=== PATIENT | female | born 1965 | race Caucasian/White ===

== ENCOUNTER → 2016-09-11 | Outpatient (CLI) | payer OTHER ==
--- NOTE | 2016-09-11 14:30 | RADIOLOGY REPORT (SQ) ---
EXAM DESCRIPTION: U/S NON-OB PELVIS TV W/O DOP COMPLETED DATE/TIME: 09/11/2016 2:03 pm REASON FOR STUDY: DYSMENORRHEA (N94.6) N94.6 DYSMENORRHEA, UNSPECIFIED COMPARISON: None. TECHNIQUE: Dynamic and static grayscale images acquired of the pelvis via transvaginal approach and recorded on PACS. Additional selected color Doppler and spectral images recorded. LIMITATIONS: None. FINDINGS: UTERUS: A small hypoechoic area is identified in the uterine body just superior to the cer vix measuring 1.8 x 1.8 x 1.5 cm in diameters which may represent a small uterine fibroid. ENDOMETRIAL STRIPE: No focal or generalized thickening. No masses. CERVIX: Nabothian cysts are identified. RIGHT OVARY: Right ovary was not visualized. LEFT OVARY: Left ovarian cyst is identified measuring 3.2 x 2.9 x 3.0 cm in diameters. LEFT OVARY DOPPLER: Normal arterial vascular flow without evidence for torsion. FREE FLUID: None noted. OTHER: No other significant finding. MEASUREMENTS: UTERUS: 14.3 x 7.5 x 7.0 cm ENDOMETRIAL STRIPE: 18 mm RIGHT OVARY: Not visualized LEFT OVARY: 3.8 x 3.5 x 3.3 cm IMPRESSION: Small left ovarian cysts. Small hypoechoic area in the uterine body is noted above whic h may represent a small uterine fibroid. Other findings as noted above TECHNICAL DOCUMENTATION: JOB ID: [id number]- All Rights Reserved
== END ==
LOC: RAD 13:21
PROVIDERS: ATTEND Nurse Practitioner
DX: N94.6 Dysmenorrhea, unspecified (principal)
CPT/HCPCS: 76830

== ENCOUNTER 2017-10-19 13:54 | Emergency (ER) | payer OTHER ==
--- NOTE | 2017-10-19 15:28 | ER Document Report ---
ED Medical Screen (RME) - General Chief Complaint: Abnormal Lab Results Stated Complaint: ABNORMAL LABS Time Seen by Provider: 10/19/17 15:26 TRAVEL OUTSIDE OF THE [place] IN LAST 30 DAYS: No - HPI Notes: 10/19/17 15:28 Intermittent vaginal bleeding states heavy last night since having menopause. Patient states today was seen by her doctor had a fingerstick performed showing hemoglobin approximately around 7 told to come to the ER for blood transfusion. - Related Data Allergies/Adverse Reactions: No Known Allergies Allergy (Unverified 10/19/17 14:06) Review of Systems - Review of Systems Constitutional: Other - Anemia possible blood transfusion Physical Exam - Vital signs Vitals: Temp Pulse Resp BP Pulse Ox 99.0 F 103 H 18 186/81 H 100 10/19/17 14:08 10/19/17 14:08 10/19/17 14:08 10/19/17 14:08 10/19/17 14:08 - General General appearance: Appears well In distress: None Course - Vital Signs Vital signs: Temp Pulse Resp BP Pulse Ox 99.0 F 103 H 18 186/81 H 100 10/19/17 14:08 10/19/17 14:08 10/19/17 14:08 10/19/17 14:08 10/19/17 14:08 Doctor's Discharge - Discharge Referrals: SHANNEN BAUTISTA NP-C [Primary Care Provider] - Follow up as needed
[2017-10-19 16:26] LABS: ANION GAP 11 (5-19); BLOOD UREA NITROGEN 14 mg/dL (7-20); CALCIUM 9.1 mg/dL (8.4-10.2); CARBON DIOXIDE 31 mmol/L (22-30); CHLORIDE 102 mmol/L (98-107); GLUCOSE 138 mg/dL (75-110); HEMATOCRIT 24.9 % (36.0-47.0); MEAN CORPUSCULAR HEMOGLOBIN 17.1 pg (27.0-33.4); MEAN CORPUSCULAR HGB CONC 30.8 g/dL (32.0-36.0); PLATELET COUNT 393 10^3/uL (150-450); POTASSIUM 3.9 mmol/L (3.6-5.0); RED BLOOD COUNT 4.48 10^6/uL (3.72-5.28); RED CELL DISTRIBUTION WIDTH 19.4 % (11.5-14.0); SODIUM 143.9 mmol/L (137-145); WHITE BLOOD COUNT 13.1 10^3/uL (4.0-10.5)
[2017-10-19 16:30] LABS: ABSOLUTE MONOCYTES # (MANUAL) 0.9 10^3/uL (0.1-1.4); ABSOLUTE NEUTROPHILS# (MANUAL) 9.8 10^3/uL (1.7-8.2); BASOPHILS % (MANUAL) 2 % (0-2); EOSINOPHILS % (MANUAL) 1 % (0-6); LYMPHOCYTES % (MANUAL) 15 % (13-45); MONOCYTES % (MANUAL) 7 % (3-13); SEGMENTED NEUTROPHILS % (MAN) 75 % (42-78); TOTAL CELLS COUNTED 100
[2017-10-19 16:32] LABS: ANISOCYTOSIS 2+; HYPOCHROMASIA 2+; MEAN CORPUSCULAR VOLUME 56 fl (80-97); OVALOCYTES SLIGHT; PLATELET COMMENT ADEQUATE; POIKILOCYTOSIS SLIGHT; TOXIC GRANULATION SLIGHT
[2017-10-19 16:50] LABS: HEMOGLOBIN 7.7 g/dL (12.0-15.5)
[2017-10-19] MEDS ORDERED: NORMAL SALINE 250 ML IV PRN (17:17)
--- NOTE | 2017-10-19 18:37 | ER Document Report ---
ED General - General Chief Complaint: Abnormal Lab Results Stated Complaint: ABNORMAL LABS Time Seen by Provider: 10/19/17 15:26 Notes: Patient says that she was referred here to get blood transfusions. She has a history of anemia and in the past has been treated with iron, but currently only takes a multivitamin with iron in the pill. She has some very heavy bleeding last night that lasted for about 3 hours and contacted her primary care physician today who checked a blood count and found her hemoglobin was very low, in the 7s. Patient was referred here for transfusion. Patient says that she has had irregular menses for a long time. She has had erratic heavy bleeding at times. She is never had to get a transfusion before. Denies any vomiting of blood or passing blood per rectum. Denies history of hemorrhoids. Denies any abdominal pains. No history of ulcers. Denies any fever. Patient has had her tubes tied. History of hypertension. TRAVEL OUTSIDE OF THE [place] IN LAST 30 DAYS: No - Related Data Allergies/Adverse Reactions: No Known Allergies Allergy (Unverified 10/19/17 14:06) Past Medical History - Social History Smoking Status: Never Smoker Chew tobacco use (# tins/day): No Frequency of alcohol use: None Drug Abuse: None Family History: Reviewed & Not Pertinent Patient has suicidal ideation: No Patient has homicidal ideation: No - Past Medical History Cardiac Medical History: Reports: Hx Hypertension Past Surgical History: Reports: Hx Tubal Ligation Review of Systems - Review of Systems Notes: REVIEW OF SYSTEMS: CONSTITUTIONAL : Denies fever. EENT: Denies eye, ear, nose or mouth or throat pain or other symptoms. CARDIOVASCULAR: Denies chest pain. RESPIRATORY: Denies cough, chest congestion, or shortness of breath. GASTROINTESTINAL: Denies abdominal pain or nausea, vomiting, or diarrhea. GENITOURINARY: Denies difficulty or painful urinating, urinary frequency, blood in urine. Heavy vaginal bleeding last night. Almost clear today. See HPI. MUSCULOSKELETAL: Denies back or neck pain. Denies joint pain or swelling. SKIN: Denies rash or skin lesions. NEUROLOGICAL: Denies LOC or altered mental status. Denies headache. Denies sensory loss or motor deficits. ALL OTHER SYSTEMS REVIEWED AND NEGATIVE. Physical Exam - Vital signs Vitals: Temp Pulse Resp BP Pulse Ox 99.0 F 103 H 18 186/81 H 100 10/19/17 14:08 10/19/17 14:08 10/19/17 14:08 10/19/17 14:08 10/19/17 14:08 Interpretation: Hypertensive - Mild - Notes Notes: PHYSICAL EXAMINATION: GENERAL: Well-appearing, in no acute distress. Looks well and healthy. Vital signs are normal except for slightly elevated blood pressure which she says she and her doctor are going to work on. HEAD: Atraumatic, normocephalic. EYES: Pupils equal round and reactive to light, extraocular movements intact. ENT: oropharynx clear without exudates. Moist mucous membranes. NECK: Normal range of motion, supple. LUNGS: Breath sounds clear and equal bilaterally. HEART: Regular rate and rhythm without murmurs. ABDOMEN: Soft, nontender. No guarding or rebound. No masses. BACK: No tenderness throughout entire back. EXTREMITIES: Normal range of motion without pain. NEUROLOGICAL: Normal speech, normal gait. Normal sensory, motor, and reflex exams. Awake, alert, and oriented x3. Cranial nerves normal. PSYCH: Normal mood, normal affect. SKIN: Warm, dry, no rashes. Course - Re-evaluation Re-evalutation: 10/19/17 18:37 Patient will receive 2 units of packed cells and then discharged home to follow- up with her primary care provider. 10/19/17 20:51 I did not do a test on the patient because she is 52 years of age and because she has had a tubal ligation. However, on second thought, I decided to get a test just to confirm that she is not . - Vital Signs Vital signs: Temp Pulse Resp BP Pulse Ox 98.6 F 103 H 14 154/70 H 99 10/19/17 20:13 10/19/17 14:08 10/19/17 20:15 10/19/17 20:15 10/19/17 20:15 - Laboratory Result Diagrams: 10/19/17 16:00 10/19/17 16:00 Laboratory results interpreted by me: 10/19/17 10/19/17 10/19/17 16:00 16:00 16:00 WBC 13.1 H Hgb 7.7 L Hct 24.9 L MCV 56 L MCH 17.1 L MCHC 30.8 L RDW 19.4 H Abs Neuts (Manual) 9.8 H Abs Basophils (Manual) 0.3 H Carbon Dioxide 31 H Glucose 138 H Crossmatch See Detail Discharge - Discharge Clinical Impression: Anemia, Vaginal bleeding Condition: Stable Disposition: HOME, SELF-CARE Additional Instructions: Anemia You have been found to have a significant anemia (a lower than normal amount of red blood cells). Anemia can be due to iron deficiency, vitamin deficiency, abnormal bleeding, or internal diseases. Usually, further tests are necessary to find the exact cause of the anemia. The most common cause of anemia is iron deficiency, often brought on by blood loss. This can be treated with iron supplements. If this appears to be the most likely cause, iron tablets may be prescribed even before all tests are complete. Contact the doctor at once if you note black or tarry-looking stools, bloody vomiting, shortness of breath, chest pain, or faintness. VAGINAL BLEEDING: You are having an episode of abnormal bleeding. Causes of abnormal vaginal bleeding can include miscarriage or tubal , tumors such as cancer or benign fibroids, medication effects, or hormone imbalance. Testing can eliminate unsuspected , tumors, or infection as a cause. "Dysfunctional uterine bleeding" is due to hormone imbalance, and is especially common at times when the normal cycle is disturbed -- whether by recent , use of control pills or hormones, or impending menopause. If the bleeding is innocent, most commonly a short course of hormones is given to restore the uterus to normal. Sometimes, the normal menstrual cycle corrects itself naturally. Sometimes , brief hormone therapy, or even a D&C is required. Your physician will advise you. Treatment for anemia may be required if bleeding is severe. You should rest and avoid intercourse until the bleeding is controlled. Call the doctor or return for re-examination if you feel faint, have increasing pain, or have a major increase in the amount of bleeding. From your ultrasound done last year, it suggested the possibility that she might have a small benign tumor called FIBROIDS: Fibroids are benign growths or tumors in the uterus. They can cause enlargement of the uterus, irregular bleeding, severe bleeding with periods, and abdominal pain. Anemia may result if periods are heavy. Fibroids tend to grow until menopause, then slowly shrink. If fibroids cause severe symptoms, they can be treated surgically. Call or return if vaginal bleeding or pain becomes severe. It appears that you have been adequately worked up in the past and had appropriate follow-up and do not need any further investigation at this time. I only recommend that you follow-up with your primary care provider to follow your vaginal bleeding until it stops or to get any further studies that seem to be indicated. You are being transfused 2 units of blood. You should be able to resume normal activities tomorrow. See your primary care physician to prescribe you iron pills, if indicated in the future. FOLLOW-UP CARE: If you have been referred to a physician for follow-up care, call the physician s office for an appointment as you were instructed or within the next two days. If you experience worsening or a significant change in your symptoms, notify the physician immediately or return to the Emergency Department at any time for re-evaluation. Referrals: SHANNEN BAUTISTA NP-C [NURSE PRACTITIONER] - Follow up as needed
[2017-10-20 02:20] VITALS: BP 150/60
[2017-10-20 09:34] LABS: PATH REVIEW PATHOLOGIST REVIEWED
== END 2017-10-20 02:01 | disposition home or self-care (01) ==
LOC: ER 13:54
DX: D64.9 Anemia, unspecified (principal); N92.5 Other specified irregular menstruation; I10 Essential (primary) hypertension
CPT/HCPCS: 99283; 86900; 86901; 36415; 36430; 86850; 84703; 85025; 80048; 86920; P9016

== ENCOUNTER → 2017-10-29 | Outpatient (CLI) | payer OTHER ==
--- NOTE | 2017-10-29 13:14 | WOMENS IMAGING REPORT ---
EXAM DESCRIPTION: TRANSVAGINAL ULTRASOUND COMPLETED DATE/TIME: 10/29/2017 12:08 pm REASON FOR STUDY: UTERINE LEIOMYOMA, UNSPECIFIED LOCATION D25.9 D25.9 LEIOMYOMA OF UTERUS, UNSPECIF IED COMPARISON: PELVIC ULTRASOUND 09/11/2016 TECHNIQUE: Dynamic and static grayscale images acquired of the pelvis via transvaginal approach and recorded on PACS. Additional selected color Doppler and spectral images recorded. LIMITATIONS: None. FINDINGS: UTERUS: Uterus measures 13 x 7 x 8 cm in size. Along the lower uterine segment-cervix perla ction within the endometrial/upper endocervical canal, a hypoechoic solid polypoid mass with internal color flow is present measuring 5.6 x 3 cm in size. It is difficult to discern whether this is an e ndometrial polyp or mass protruding into the cervix, or whether this is a primary cervical mucosal ma ss extending up into the lower uterine segment. This report was called to CELIO Reagan 1300 hours, 10/29/2017. ENDOMETRIAL STRIPE: Fundal endometrial stripe measures 16 mm in thickness. CERVIX: As above. Small nabothian cysts are present. RIGHT OVARY AND DOPPLER: Normal size, 4 x 2.8 x 2.7 cm in size with a 2 cm simple cyst. No worrisome masses. Normal arterial vascular flow without evidence for torsion. LEFT OVARY AND DOPPLER: Normal size, 3.6 x 2.1 x 3.3 cm in size. No worrisome masses. Normal arterial vascular flow without evidence for torsion. FREE FLUID: None noted. OTHER: No other significant finding. IMPRESSION: 5.6 x 3 cm solid mass with internal color flow in the endocervical/endometrial canal at the lower uterine segment-cervix junction. This is worrisome for an endometrial polypoid mass or end ocervical mucosal mass or polyp. Malignancy could not be excluded. Findings called to the patient's primary provider. TECHNICAL DOCUMENTATION: JOB ID: [id number] [employer]- All Rights Reserved Reading location - IP/workstation name: [email or web address]
== END ==
LOC: WI 11:34
PROVIDERS: ATTEND Nurse Practitioner Family
DX: D25.9 Leiomyoma of uterus, unspecified (principal)
CPT/HCPCS: 76830

== ENCOUNTER 2017-12-30 19:00 | Emergency (ER) | payer OTHER ==
--- NOTE | 2017-12-30 19:57 | ER Document Report ---
ED Medical Screen (RME) - General Chief Complaint: Abnormal Lab Results Stated Complaint: ABNORMAL LAB VALUES Time Seen by Provider: 12/30/17 19:50 Mode of Arrival: Ambulatory Information source: Patient Notes: 52-year-old female presents emergency department for anemia. Patient states that she had vaginal bleeding all last week secondary to a fibroid. Patient states the bleeding has stopped. She has followed up with her physician on Wednesday and had labs drawn. She was called today with an abnormal hemoglobin of 7 and told to go to the ED for evaluation. I have greeted and performed a rapid initial assessment of this patient. A comprehensive ED assessment and evaluation of the patient, analysis of test results and completion of the medical decision making process will be conducted by additional ED providers. PHYSICAL EXAMINATION: GENERAL: Well-appearing, well-nourished and in no acute distress. HEAD: Atraumatic, normocephalic. EYES: Pupils equal round extraocular movements intact, conjunctiva are normal. ENT: Nares patent NECK: Normal range of motion LUNGS: No respiratory distress Musculoskeletal: Normal range of motion NEUROLOGICAL: Normal speech, normal gait. PSYCH: Normal mood, normal affect. SKIN: Warm, Dry, normal turgor, no rashes or lesions noted. TRAVEL OUTSIDE OF THE [place] IN LAST 30 DAYS: No - Related Data Allergies/Adverse Reactions: No Known Allergies Allergy (Verified 12/30/17 19:01) Past Medical History - Past Medical History Cardiac Medical History: Reports: Hx Hypertension Denies: Hx Coronary Artery Disease, Hx Heart Attack Pulmonary Medical History: Denies: Hx Asthma, Hx Bronchitis, Hx COPD, Hx Pneumonia Neurological Medical History: Denies: Hx Cerebrovascular Accident, Hx Seizures Renal/ Medical History: Denies: Hx Peritoneal Dialysis Musculoskeltal Medical History: Denies Hx Arthritis Past Surgical History: Reports: Hx Tubal Ligation - Immunizations Hx Diphtheria, Pertussis, Tetanus Vaccination: Yes History of Influenza Vaccine for 11/2016 - 04/2017 Season: Yes Influenza Administration Date for 11/2016 - 04/2017 Season: 11/29/17 Physical Exam - Vital signs Vitals: Temp Pulse Resp BP Pulse Ox 98.8 F 92 18 177/84 H 100 12/30/17 19:18 12/30/17 19:18 12/30/17 19:18 12/30/17 19:18 12/30/17 19:18 Course - Vital Signs Vital signs: Temp Pulse Resp BP Pulse Ox 98.8 F 92 18 177/84 H 100 12/30/17 19:18 12/30/17 19:18 12/30/17 19:18 12/30/17 19:18 12/30/17 19:18 Doctor's Discharge - Discharge Referrals: CAROLYN MACKAY FNP-C [Primary Care Provider] - Follow up as needed
[2017-12-30 20:39] LABS: ABSOLUTE BASOPHILS # (AUTO) 0.1 10^3/uL (0.0-0.2); ABSOLUTE EOSINOPHILS # (AUTO) 0.6 10^3/uL (0.0-0.6); ABSOLUTE LYMPHOCYTES (AUTO) 2.1 10^3/uL (0.5-4.7); ABSOLUTE MONOCYTES (AUTO) 0.5 10^3/uL (0.1-1.4); ABSOLUTE NEUT (AUTO) 5.2 10^3/uL (1.7-8.2); BASOPHILS % (AUTO) 1.4 % (0-2); EOSINOPHILS % (AUTO) 6.8 % (0-6); HEMATOCRIT 26.6 % (36.0-47.0); HEMOGLOBIN 8.4 g/dL (12.0-15.5); LYMPHOCYTES % (AUTO) 24.6 % (13-45); MEAN CORPUSCULAR HEMOGLOBIN 23.4 pg (27.0-33.4); MEAN CORPUSCULAR HGB CONC 31.4 g/dL (32.0-36.0); MEAN CORPUSCULAR VOLUME 75 fl (80-97); MONOCYTES % (AUTO) 5.9 % (3-13); PLATELET COUNT 401 10^3/uL (150-450); RED BLOOD COUNT 3.57 10^6/uL (3.72-5.28); RED CELL DISTRIBUTION WIDTH 22.5 % (11.5-14.0); SEGMENTED NEUTROPHILS % (AUTO) 61.3 % (42-78); TOTAL CELLS COUNTED % (AUTO) 100 %; WHITE BLOOD COUNT 8.5 10^3/uL (4.0-10.5)
[2017-12-30 20:56] LABS: ANISOCYTOSIS 3+
[2017-12-30 20:59] LABS: OVALOCYTES SLIGHT; POIKILOCYTOSIS SLIGHT; TEAR DROP CELLS SLIGHT
[2017-12-30 21:00] LABS: HYPOCHROMASIA SLIGHT; PLATELET COMMENT ADEQUATE
[2017-12-30 21:01] LABS: POLYCHROMASIA SLIGHT
--- NOTE | 2017-12-30 22:57 | ER Document Report ---
ED General - General Mode of Arrival: Ambulatory Information source: Patient TRAVEL OUTSIDE OF THE [place] IN LAST 30 DAYS: No <YAEL SANTANA - Last Filed: 12/31/17 00:34> <HERLINDA ARGUETA - Last Filed: 01/03/18 10:51> - General Chief Complaint: Abnormal Lab Results Stated Complaint: ABNORMAL LAB VALUES Time Seen by Provider: 12/30/17 19:50 Notes: Patient is a 52-year-old female with history of anemia presents to the emergency department complaining of abnormal lab results. Patient reports having vaginal bleeding last week due to a fibroid and presented to her primary care physician a couple of days ago where labs were drawn. Patient says that she was contacted by her PCP today and was informed that her hemoglobin was 7 and instructed to come to the emergency department.. Patient states that she is currently asymptomatic and has actually been feeling better recently than she has in a long time. Patient states that she is currently taking iron supplements. Patient states that she really has had to be admitted for her anemia and received blood transfusion but does not currently feel similar to those episodes. (YAEL SANTANA) - Related Data Allergies/Adverse Reactions: No Known Allergies Allergy (Verified 12/30/17 19:01) Past Medical History - General Information source: Patient - Social History Smoking Status: Never Smoker Family History: Reviewed & Not Pertinent Patient has suicidal ideation: No Patient has homicidal ideation: No - Past Medical History Cardiac Medical History: Reports: Hx Hypertension Renal/ Medical History: Denies: Hx Peritoneal Dialysis Past Surgical History: Reports: Hx Tubal Ligation - Immunizations Hx Diphtheria, Pertussis, Tetanus Vaccination: Yes <YAEL SANTANA - Last Filed: 12/31/17 00:34> Review of Systems - Review of Systems Constitutional: No symptoms reported EENT: No symptoms reported Cardiovascular: No symptoms reported Respiratory: No symptoms reported Gastrointestinal: No symptoms reported Genitourinary: No symptoms reported Female Genitourinary: No symptoms reported Musculoskeletal: No symptoms reported Skin: No symptoms reported Hematologic/Lymphatic: No symptoms reported, See HPI, Anemia Neurological/Psychological: No symptoms reported -: Yes All other systems reviewed and negative <YAEL SANTANA - Last Filed: 12/31/17 00:34> Physical Exam <YAEL SANTANA - Last Filed: 12/31/17 00:34> <HERLINDA ARGUETA - Last Filed: 01/03/18 10:51> - Vital signs Vitals: Temp Pulse Resp BP Pulse Ox 98.8 F 92 18 177/84 H 100 12/30/17 19:18 12/30/17 19:18 12/30/17 19:18 12/30/17 19:18 12/30/17 19:18 - Notes Notes: GENERAL: Alert, interacts well. No acute distress. HEAD: Normocephalic, atraumatic. EYES: Pupils equal, round, and reactive to light. Extraocular movements intact. ENT: Oral mucosa moist, tongue midline. NECK: Full range of motion. Supple. Trachea midline. LUNGS: Clear to auscultation bilaterally, no wheezes, rales, or rhonchi. No respiratory distress. HEART: Regular rate and rhythm. No murmurs, gallops, or rubs. ABDOMEN: Soft, non-tender. Non-distended. Bowel sounds present in all 4 quadrants. EXTREMITIES: Moves all 4 extremities spontaneously. NEUROLOGICAL: Alert and oriented x3. Normal speech. PSYCH: Normal affect, normal mood. SKIN: Warm, dry, normal turgor. No rashes or lesions noted. (YAEL SANTANA) Course - Laboratory Result Diagrams: 12/30/17 20:28 <YAEL SNATANA - Last Filed: 12/31/17 00:34> - Laboratory Result Diagrams: 12/30/17 20:28 <HERLINDA ARGUETA - Last Filed: 01/03/18 10:51> - Re-evaluation Re-evalutation: 12/30/17 22:58 Patient's hemoglobin 8.4 completely asymptomatic not tachycardic no dizziness no chest pain or shortness of breath. Patient states she is taking iron supplementation of note. Advised patient blood transfusion is not warranted at this time is considered a liquid organ transfusion and is not necessary with the value she has an showing no symptoms. I did discuss she is to talk to her family doctor about this and if she insists on blood transfusion this can be done on an out-patient basis. (HERLINDA ARGUETA) - Vital Signs Vital signs: Temp Pulse Resp BP Pulse Ox 97.6 F 78 18 156/82 H 97 12/30/17 23:24 12/30/17 23:24 12/30/17 23:24 12/30/17 23:24 12/30/17 23:24 - Laboratory Laboratory results interpreted by me: 12/30/17 20:28 RBC 3.57 L Hgb 8.4 L Hct 26.6 L MCV 75 L MCH 23.4 L MCHC 31.4 L RDW 22.5 H Eosinophils % 6.8 H Discharge <YAEL SANTANA - Last Filed: 12/31/17 00:34> <HERLINDA ARGUETA - Last Filed: 01/03/18 10:51> - Discharge Clinical Impression: Anemia Qualifiers: Anemia type: unspecified type Qualified Code(s): D64.9 - Anemia, unspecified Condition: Good Disposition: HOME, SELF-CARE Instructions: Anemia ([facility]) Referrals: CAROLYN MACKAY FNP-C [Primary Care Provider] - Follow up as needed Scribe Attestation: 01/03/18 10:51 I personally performed the services described in the documentation, reviewed and edited the documentation which was dictated to the scribe in my presence, and it accurately records my words and actions. (HERLINDA ARGUETA) Scribe Documentation - Scribe Written by Edisibe:: Rosa Mcgarry, 12/30/2017 23:11 acting as scribe for :: Bunny <YAEL SANTANA - Last Filed: 12/31/17 00:34>
[2017-12-30 23:25] VITALS: BP 156/82
== END 2017-12-30 23:28 | disposition home or self-care (01) ==
LOC: ER 19:00
DX: D64.9 Anemia, unspecified (principal); I10 Essential (primary) hypertension; Z98.51 Tubal ligation status
CPT/HCPCS: 36415; 85025; 99283

== ENCOUNTER 2018-01-07 05:30 | Day surgery (SDC) | payer OTHER ==
[2017-12-30 10:32] LABS: HEMATOCRIT 26.2 % (36.0-47.0); HEMOGLOBIN 8.6 g/dL (12.0-15.5); MEAN CORPUSCULAR HEMOGLOBIN 23.8 pg (27.0-33.4); MEAN CORPUSCULAR HGB CONC 32.7 g/dL (32.0-36.0); MEAN CORPUSCULAR VOLUME 73 fl (80-97); PLATELET COUNT 382 10^3/uL (150-450); RED CELL DISTRIBUTION WIDTH 22.1 % (11.5-14.0)
[2017-12-30 10:34] LABS: APPEARANCE,URINE SLIGHTLY-CLOUDY; BILIRUBIN,URINE NEGATIVE (NEGATIVE); COLOR,URINE YELLOW; GLUCOSE, URINE NEGATIVE (NEGATIVE); KETONES,URINE NEGATIVE (NEGATIVE); LEUKOCYTE ESTERASE,URINE NEGATIVE (NEGATIVE); NITRITE,URINE NEGATIVE (NEGATIVE); PROTEIN,URINE NEGATIVE (NEGATIVE); URINE SPECIFIC GRAVITY 1.014; UROBILINOGEN,URINE NEGATIVE mg/dL (<2.0)
[~2018-01-07 05:30] MED LIST: LACTATED RINGERS 1000 ML IV PRN; LIDOCAINE 0.5% INJ-PF (5 MG/ML) 50 ML SDV SUBCUT PRN
[2018-01-07] MEDS ORDERED: FENTANYL CITRATE INJ/PF 100 MCG/2 ML AMPUL ONE (06:55)
[2018-01-07] MEDS ORDERED: LIDOCAINE 2% INJ-PF (20 MG/ML) 10 ML AMPUL ONE (06:55)
[2018-01-07] MEDS ORDERED: MIDAZOLAM 2 MG/2 ML INJ ONE (06:56)
[2018-01-07] MEDS ORDERED: PROPOFOL INJ 200 MG/20 ML VIAL IV ONE ×2 (06:56→07:58)
[2018-01-07] MEDS ORDERED: FENTANYL CITRATE INJ/PF 100 MCG/2 ML AMPUL IV PRN ×3 (07:58)
[2018-01-07] MEDS ORDERED: MEPERIDINE HCL/PF INJ 25 MG/1 ML DISP.SYRIN IV PRN (07:58)
[2018-01-07] MEDS ORDERED: DIPHENHYDRAMINE HCL 50 MG/ML VIAL IV PRN (07:58)
[2018-01-07] MEDS ORDERED: PROMETHAZINE HCL INJ 25 MG/1 ML VIAL IV PRN ×2 (07:58)
[2018-01-07] MEDS ORDERED: MORPHINE SULFATE 10 MG/ML INJ IV PRN (07:58)
[2018-01-07] MEDS ORDERED: OXYCODONE-ACETAMINOPHEN 5-325 MG TABLET PO PRN ×4 (07:58→08:43)
[2018-01-07] MEDS ORDERED: LIDOCAINE 1%/EPINEPHRINE INJ 20 ML VIAL ONE (08:06)
[2018-01-07] MEDS ORDERED: KETOROLAC TROMETHAMINE INJ/PF 30 MG/1 ML SDV IV PRN (08:43)
[2018-01-07] MEDS ORDERED: RINGERS SOLUTION,LACTATED 1,000 ML IV PRN (08:43)
[2018-01-07] MEDS ORDERED: IBUPROFEN 800 MG TABLET PO PRN (08:43)
[2018-01-07] MEDS ORDERED: ONDANSETRON HCL INJ/PF 4 MG/2 ML SDV ONE (08:51)
[2018-01-07] MEDS ORDERED: KETOROLAC TROMETHAMINE 60 MG/2 ML SDV ONE (08:51)
--- NOTE | 2018-01-07 08:52 | Operative Report ---
Operative Report DATE OF SURGERY: 01/07/18 PREOPERATIVE DIAGNOSIS: Uterine fibroid, right thigh skin tag POSTOPERATIVE DIAGNOSIS: Same OPERATION: Myomectomy D&C, removal of right thigh skin tag SURGEON: JESUS GOVEA ANESTHESIA: GA TISSUE REMOVED OR ALTERED: Uterine fibroid prolapsing at the cervix and right thigh skin tag COMPLICATIONS: None ESTIMATED BLOOD LOSS: 10 cc INTRAOPERATIVE FINDINGS: Patient had a fibroid prolapsing at the cervix, and the right thigh skin tag which she asked to have removed. PROCEDURE: Patient was taken back to the OR and placed in supine position. General anesthesia was induced. She is placed in the dorsolithotomy position using Marlon stirrups. Her perineum and vagina were prepared and draped in sterile fashion. She had voided prior to the procedure and therefore did not need a catheterization. Initially the skin tag was removed by injecting the skin with a dilute solution of lidocaine with epinephrine and next excising the skin tag. Cautery was used at the base to stop bleeding. Weighted speculum was placed in the vagina and the anterior lip cervix was grasped with a tenaculum. The fibroid could be seen prolapsing near the tip of the cervix. The cervix was also dilated a bit which allowed me to place a fingertip up in the cervix and feel the extent of the fibroid. The fibroid was then removed by grasping it with a tenaculum and morcellating the fibroid. It was removed in several pieces. The uterus was sounded before the case to 8 cm and after the case to 8 cm. A sharp curettage was also carried out. The hysteroscopy was used to explore the uterus and there was no evidence of perforation. There were no other fibroids in the uterine cavity. The view was somewhat compromised as it was difficult to get much distention with the open cervix. All tissue was sent for specimen. All instruments were removed and patient was in supine position. She was brought out of anesthesia and taken to recovery room in stable condition. Bleeding was minimal.
[2018-01-07] MEDS ORDERED: LISINOPRIL 10 MG TABLET PO SCH (10:00)
[2018-01-07] MEDS ORDERED: FERROUS SULFATE 325 MG TABLET PO SCH (10:00)
[2018-01-07] MEDS ORDERED: (PENDING PHARMACY ID) (Lisinopril [Lisinopril] 40 MG) PO SCH (10:00)
[2018-01-07] MEDS ORDERED: MULTIVITAMIN TABLET PO SCH (10:00)
[2018-01-10 11:32] VITALS: BP 123/78
== END 2018-01-10 10:15 | disposition home or self-care (01) ==
LOC: OROUT 05:30
PROVIDERS: ATTEND Obstetrics & Gynecology
DX: D25.0 Submucous leiomyoma of uterus (principal); C54.1 Malignant neoplasm of endometrium; L91.8 Other hypertrophic disorders of the skin; I10 Essential (primary) hypertension; E66.9 Obesity, unspecified; D64.9 Anemia, unspecified; Z68.41 Body mass index [BMI] 40.0-44.9, adult; Z87.891 Personal history of nicotine dependence; Z79.899 Other long term (current) drug therapy
CPT/HCPCS: 36415; 85027; 81005; 81025; 88305 ×2; 58561; 11200; J2250; J1885; J3010; J3490 ×2; J2405; J2704; 952

== ENCOUNTER → 2019-03-20 | Outpatient (CLI) | payer OTHER ==
--- NOTE | 2019-03-20 14:34 | RADIOLOGY REPORT (SQ) ---
EXAM DESCRIPTION: SHOULDER LEFT 2 OR MORE VIEWS COMPLETED DATE/TIME: 03/20/2019 11:07 am REASON FOR STUDY: ACUTE PAIN OF LEFT SHOULDER M25.512 PAIN IN LEFT SHOULDER COMPARISON: None. NUMBER OF VIEWS: Three views. TECHNIQUE: Internal rotation, external rotation, and Y view images acquired of the left shoulder. LIMITATIONS: None. FINDINGS: MINERALIZATION: Normal. BONES: No acute fracture. No worrisome bone lesions. JOINTS: No dislocation. VISUALIZED LUNGS AND RIBS: No pneumothorax. No rib fracture. SOFT TISSUES: No radiopaque foreign body. OTHER: No other significant finding. IMPRESSION: NEGATIVE STUDY OF THE LEFT SHOULDER. NO RADIOGRAPHIC EVIDENCE OF ACUTE INJURY. TECHNICAL DOCUMENTATION: JOB ID: [id number] [employer]- All Rights Reserved Reading location - IP/workstation name: [email or web address]
== END ==
LOC: OD 10:46
PROVIDERS: ATTEND Nurse Practitioner Family
DX: M25.512 Pain in left shoulder (principal)

== ENCOUNTER → 2020-01-15 | Outpatient (CLI) | payer OTHER ==
--- NOTE | 2020-01-15 12:08 | RADIOLOGY REPORT (SQ) ---
EXAM DESCRIPTION: CHEST PA/LATERAL IMAGES COMPLETED DATE/TIME: 01/15/2020 11:50 am REASON FOR STUDY: HYPERVENTILATING COMPARISON: None. EXAM PARAMETERS: NUMBER OF VIEWS: two views TECHNIQUE: Digital Frontal and Lateral radiographic views of the chest acquired. RADIATION DOSE: NA LIMITATIONS: none FINDINGS: LUNGS AND PLEURA: No opacities, masses or pneumothorax. No pleural effusion. MEDIASTINUM AND HILAR STRUCTURES: No masses or contour abnormalities. HEART AND VASCULAR STRUCTURES: Heart normal size. No evidence for failure. BONES: No acute findings. HARDWARE: None in the chest. OTHER: No other significant finding. IMPRESSION: 1. NO SIGNIFICANT RADIOGRAPHIC FINDING IN THE CHEST. TECHNICAL DOCUMENTATION: JOB ID: [id number] [employer]- All Rights Reserved Reading location - IP/workstation name: [email or web address]
== END ==
LOC: OD 11:32
PROVIDERS: ATTEND Nurse Practitioner Family
DX: R06.4 Hyperventilation (principal)
CPT/HCPCS: 71046